=== PATIENT | male | born 1950 | race Caucasian/White ===

== ENCOUNTER 2022-09-22 05:58 | Inpatient (IN) | payer OTHER, MEDICARE ==
[~2022-09-22] VITALS: Ht 175.3 cm; Wt 117.1 kg
[~2022-09-22 05:58] MED LIST: ASPI81CH43; ATEN50TA; BUPR150T4; CYCL-181; FENT100D2; ISOS60TA24; LISI-710; METF850T; METO10TA3; NICO14DI; NITR0.4S31; PREG50CA; SIMV80TA2; TRIA25CA; VENL37.571; [UNRECOGNIZED DRUG - CODE]
[2022-09-22] MEDS ORDERED: LIDOCAINE HCL 100 MG/5ML (2%) SYRG INJ IV ONE ×2 (06:04→06:15)
[2022-09-22] MEDS ORDERED: LORazepam 2MG/ML-1ML VIAL ONE (06:06)
[2022-09-22] MEDS ORDERED: ONDANSETRON HCL 4 MG/2 ML VIAL ONE (06:08)
[2022-09-22] MEDS ORDERED: MAGNESIUM SULFATE 1GM/100ML 100 ML IV ONE ×2 (06:08→06:15)
[2022-09-22] MEDS ORDERED: SODIUM CHLORIDE 0.9% 1,000 ML IV ONE ×2 (06:15→07:00)
[2022-09-22] MEDS ORDERED: LORazepam 2MG/ML-1ML VIAL IV ONE (06:15)
[2022-09-22] MEDS ORDERED: ASPirin 325 MG TAB PO ONE (06:15)
[2022-09-22] MEDS ORDERED: ONDANSETRON HCL 4 MG/2 ML VIAL IV ONE (06:15)
[2022-09-22 06:38] LABS: Basophils # (auto) 0.1 10 ^3/uL (0-0.2); Eosinophils # (auto) 0.1 10 ^3/uL (0-0.8); Mean Corpuscular Hgb Conc. 34.2 g/dL (32.0-36.0); Monocytes # (auto) 0.6 10 ^3/uL (0-1.3); Monocytes % (auto) 6.1 % (0.0-12.0); Red Blood Cells 5.52 10^6/uL (4.5-5.90)
[2022-09-22 06:41] LABS: Basophils % (auto) 0.8 % (0.0-2.0); Eosinophils % (auto) 0.8 % (0.0-7.0); Hematocrit 51.6 % (41.0-53.0); Hemoglobin 17.7 g/dL (13.5-17.5); Lymphocytes % (auto) 32.2 % (10.0-50.0); Mean Corpuscular Volume 93.6 fL (80.0-100.0); Neutrophils # (auto) 5.5 10 ^3/uL (1.6-8.6); Neutrophils % (auto) 60.1 % (37.0-80.0); Nucleated Red Blood Cells % 0.1 %; Red Cell Distribution Width 13.2 % (11.8-14.3); White Blood Cell 9.2 10^3/uL (4.4-10.8)
[2022-09-22 06:57] LABS: Albumin 3.6 g/dL (3.4-5.0); BUN/Creatinine Ratio 20.5; Calcium 8.5 mg/dL (8.5-10.1); Potassium 4.4 mmol/L (3.5-5.1)
[2022-09-22 07:00] LABS: Bilirubin, Total 0.7 mg/dL (0.2-1.0); Total Protein 7.4 g/dL (6.4-8.2)
[2022-09-22] MEDS ORDERED: ASPirin 81 mg TAB PO ONE (07:00)
[2022-09-22] MEDS ORDERED: IOHEXOL 350 MG/ML 100ML IJ ONE (07:41)
[2022-09-22] MEDS ORDERED: HEPARIN DRIP/D5W 100UNITS/ML 250 ML IV SCH ×2 (09:15→09:45)
[2022-09-22] MEDS ORDERED: HEPARIN SODIUM (PORCINE) 5000 UNITS/ML 1ML VIAL IV ONE (09:15)
[2022-09-22 09:51] LABS: Basophils # (auto) 0 10 ^3/uL (0-0.2); Basophils % (auto) 0.4 % (0.0-2.0); Eosinophils # (auto) 0.1 10 ^3/uL (0-0.8); Eosinophils % (auto) 0.8 % (0.0-7.0); Hematocrit 51.5 % (41.0-53.0); Hemoglobin 17.4 g/dL (13.5-17.5); Lymphocytes % (auto) 28.7 % (10.0-50.0); Mean Corpuscular Hemoglobin 31.7 pg (28.0-32.0); Mean Corpuscular Hgb Conc. 33.8 g/dL (32.0-36.0); Mean Corpuscular Volume 93.8 fL (80.0-100.0); Monocytes # (auto) 0.6 10 ^3/uL (0-1.3); Monocytes % (auto) 6.1 % (0.0-12.0); Neutrophils # (auto) 6.7 10 ^3/uL (1.6-8.6); Nucleated Red Blood Cells % 0.1 %; Red Blood Cells 5.49 10^6/uL (4.5-5.90); Red Cell Distribution Width 13.1 % (11.8-14.3); White Blood Cell 10.5 10^3/uL (4.4-10.8)
[2022-09-22 10:29] LABS: INR 1.02 (0.9-1.15)
[2022-09-22] MEDS ORDERED: MORPHINE SULFATE INJ 2 MG/ml SYRG IV PRN (12:00)
[2022-09-22] MEDS ORDERED: PANTOPRAZOLE 40 MG/10 ML VIAL INJ IV ONE (12:00)
[2022-09-22] MEDS ORDERED: NITROGLYCERIN 0.4 MG SL TAB SL PRN (12:00)
[2022-09-22] MEDS ORDERED: ACETAMINOPHEN 325 MG TAB PO PRN (12:00)
[2022-09-22] MEDS ORDERED: DEXTROSE (50%) 50ML SYRG IV PRN (12:30)
[2022-09-22] MEDS ORDERED: ACETYLCYSTEINE ORAL for CIN 20%(200MG/ML) 4ML PO ONE (12:45)
[2022-09-22] MEDS: SODIUM CHLORIDE 0.9% 1,000 ML IV SCH (12:50)
[2022-09-22 12:58] LABS: Cholesterol 194 mg/dL (< 200)
[2022-09-22 13:01] LABS: HDL Cholesterol 34 mg/dL (40-59); LDL Cholesterol 147 mg/dL (< 100); Triglycerides 197 mg/dL (< 150)
[2022-09-22] MEDS ORDERED: NICOTINE 14 MG/24HR TOPICAL PATCH TD ONE (13:15)
[2022-09-22] MEDS ORDERED: IOHEXOL 300 MG/ML 100ML BOTTLE IJ ONE (14:23)
[2022-09-22 16:49] LABS: INR 1.08 (0.9-1.15)
[2022-09-22 16:53] LABS: Partial Thromboplastin Time 83.4 sec (24.6-33.4)
[2022-09-22] MEDS: InsuLIN REG 1unit/0.01ml Soln (100units/ml) SC SCH ×2 (17:00→21:05)
[2022-09-22] MEDS: ACCU-CHEK COMFORT CURVE STRIP VI SCH ×2 (17:12→21:05)
[2022-09-22] MEDS: HEPARIN DRIP/D5W 100UNITS/ML 250 ML IV SCH (17:45)
[2022-09-22] MEDS ORDERED: AMIODARONE HCL 150 MG in D5W 5% 100 ML IV ONE (18:00)
[2022-09-22] MEDS ORDERED: ETOMIDATE (2MG/ML) 20ML VIAL IV ONE ×2 (18:00→18:15)
[2022-09-22] MEDS ORDERED: ADENOSINE 6 MG/2 ML INJ IV ONE (18:15)
[2022-09-22] MEDS ORDERED: AMIODARONE 450mg/250ml AE 250 ML IV SCH (18:30)
[2022-09-22] MEDS: ASCORBIC ACID 500 MG TAB PO SCH (21:22)
[2022-09-22 21:26] VITALS: BP 153/80
[2022-09-22] MEDS ORDERED: TRAZ50TA2 PO (21:52)
[2022-09-22 22:00] VITALS: BP 153/80
[2022-09-22 23:43] LABS: INR 1.07 (0.9-1.15)
[2022-09-22 23:58] LABS: Partial Thromboplastin Time 90.8 sec (24.6-33.4)
[2022-09-23] MEDS: SODIUM CHLORIDE 0.9% 1,000 ML IV SCH (04:19)
[2022-09-23 05:00] VITALS: BP 136/78
[2022-09-23] MEDS: ACCU-CHEK COMFORT CURVE STRIP VI SCH ×4 (05:57→22:55)
[2022-09-23] MEDS: InsuLIN REG 1unit/0.01ml Soln (100units/ml) SC SCH ×4 (05:58→23:30)
[2022-09-23] MEDS: AMIODARONE 450mg/250ml AE 250 ML IV SCH ×2 (07:30→22:30)
[2022-09-23 07:38] LABS: Albumin 3.2 g/dL (3.4-5.0); Calcium 8.2 mg/dL (8.5-10.1); Potassium 4.1 mmol/L (3.5-5.1)
[2022-09-23 07:40] LABS: BUN/Creatinine Ratio 19.1
[2022-09-23 07:46] LABS: INR 1.05 (0.9-1.15); Partial Thromboplastin Time 61.9 sec (24.6-33.4)
[2022-09-23 08:00] VITALS: BP 149/81
[2022-09-23 08:01] LABS: Bilirubin, Total 0.7 mg/dL (0.2-1.0); Total Protein 6.9 g/dL (6.4-8.2)
[2022-09-23 08:16] LABS: Basophils # (auto) 0.1 10 ^3/uL (0-0.2); Basophils % (auto) 0.8 % (0.0-2.0); Eosinophils # (auto) 0.1 10 ^3/uL (0-0.8); Eosinophils % (auto) 1.7 % (0.0-7.0); Hematocrit 48.3 % (41.0-53.0); Hemoglobin 16.5 g/dL (13.5-17.5); Lymphocytes # (auto) 3.6 10 ^3/uL (0.4-5.4); Lymphocytes % (auto) 41.4 % (10.0-50.0); Mean Corpuscular Hgb Conc. 34.1 g/dL (32.0-36.0); Mean Corpuscular Volume 93.9 fL (80.0-100.0); Monocytes # (auto) 0.5 10 ^3/uL (0-1.3); Monocytes % (auto) 5.6 % (0.0-12.0); Neutrophils # (auto) 4.4 10 ^3/uL (1.6-8.6); Neutrophils % (auto) 50.5 % (37.0-80.0); Nucleated Red Blood Cells % 0.3 %; Red Blood Cells 5.15 10^6/uL (4.5-5.90); Red Cell Distribution Width 13.1 % (11.8-14.3); White Blood Cell 8.6 10^3/uL (4.4-10.8)
[2022-09-23 09:00] VITALS: BP 149/81
[2022-09-23] MEDS: HEPARIN DRIP/D5W 100UNITS/ML 250 ML IV SCH ×2 (09:08→16:08)
[2022-09-23] MEDS: NICOTINE 14 MG/24HR TOPICAL PATCH TD SCH (10:00)
[2022-09-23] MEDS: PANTOPRAZOLE 40 MG/10 ML VIAL INJ IV SCH (10:21)
[2022-09-23] MEDS: ZINC SULFATE 220mg CAP or TAB PO SCH (10:22)
[2022-09-23] MEDS: ISOSORBIDE MONONITRATE ER 60 MG TAB PO SCH (10:22)
[2022-09-23] MEDS: ASCORBIC ACID 500 MG TAB PO SCH ×2 (10:23→22:55)
[2022-09-23] MEDS: ASPirin 81 mg TAB PO SCH (10:23)
[2022-09-23] MEDS: ATENOLOL 50 MG TAB PO SCH (10:24)
[2022-09-23] MEDS: MULTIPLE VITAMIN TAB PO SCH (10:26)
[2022-09-23] MEDS: LISINOPRIL 10 MG TAB PO SCH (10:27)
[2022-09-23 13:00] VITALS: BP 105/60
[2022-09-23 13:41] LABS: INR 1.05 (0.9-1.15)
[2022-09-23 17:00] VITALS: BP 114/62
[2022-09-23 19:28] LABS: INR 1.03 (0.9-1.15); Partial Thromboplastin Time 58.5 sec (24.6-33.4)
[2022-09-23 22:00] VITALS: BP 100/52
[2022-09-24] MEDS: SODIUM CHLORIDE 0.9% 1,000 ML IV SCH ×2 (00:34→13:54)
[2022-09-24 05:00] VITALS: BP 115/60
[2022-09-24] MEDS: ACCU-CHEK COMFORT CURVE STRIP VI SCH ×4 (06:06→21:30)
[2022-09-24] MEDS: InsuLIN REG 1unit/0.01ml Soln (100units/ml) SC SCH ×4 (06:06→21:30)
[2022-09-24 08:00] VITALS: BP 117/72
[2022-09-24 09:00] VITALS: BP 111/72
[2022-09-24] MEDS: MULTIPLE VITAMIN TAB PO SCH (09:34)
[2022-09-24] MEDS: ASCORBIC ACID 500 MG TAB PO SCH ×2 (09:34→21:30)
[2022-09-24] MEDS: ATENOLOL 50 MG TAB PO SCH (09:36)
[2022-09-24] MEDS: PANTOPRAZOLE 40 MG/10 ML VIAL INJ IV SCH (09:37)
[2022-09-24] MEDS: AMIODARONE HCL 200 MG TAB PO SCH (09:37)
[2022-09-24] MEDS: ASPirin 81 mg TAB PO SCH (09:37)
[2022-09-24] MEDS: LISINOPRIL 10 MG TAB PO SCH (09:38)
[2022-09-24] MEDS: ISOSORBIDE MONONITRATE ER 60 MG TAB PO SCH (09:39)
[2022-09-24] MEDS: NICOTINE 14 MG/24HR TOPICAL PATCH TD SCH (10:00)
[2022-09-24 10:29] LABS: Basophils # (auto) 0.1 10 ^3/uL (0-0.2); Basophils % (auto) 0.7 % (0.0-2.0); Eosinophils # (auto) 0.2 10 ^3/uL (0-0.8); Eosinophils % (auto) 1.9 % (0.0-7.0); Hematocrit 46.4 % (41.0-53.0); Hemoglobin 15.4 g/dL (13.5-17.5); Lymphocytes # (auto) 3.2 10 ^3/uL (0.4-5.4); Lymphocytes % (auto) 37.1 % (10.0-50.0); Mean Corpuscular Hemoglobin 31.6 pg (28.0-32.0); Mean Corpuscular Hgb Conc. 33.1 g/dL (32.0-36.0); Mean Corpuscular Volume 95.4 fL (80.0-100.0); Monocytes # (auto) 0.6 10 ^3/uL (0-1.3); Monocytes % (auto) 6.3 % (0.0-12.0); Neutrophils # (auto) 4.7 10 ^3/uL (1.6-8.6); Nucleated Red Blood Cells % 0.2 %; Red Blood Cells 4.86 10^6/uL (4.5-5.90); Red Cell Distribution Width 13.2 % (11.8-14.3); White Blood Cell 8.7 10^3/uL (4.4-10.8)
[2022-09-24] MEDS: ZINC SULFATE 220mg CAP or TAB PO SCH (10:44)
[2022-09-24] MEDS ORDERED: APIXABAN 5 MG TAB PO ONE (11:00)
[2022-09-24 11:17] LABS: INR 1.06 (0.9-1.15); Partial Thromboplastin Time 58.9 sec (24.6-33.4)
[2022-09-24] MEDS ORDERED: ADENOSINE 6 MG/2 ML INJ IV ONE (12:18)
[2022-09-24] MEDS ORDERED: AMIODARONE HCL (50 MG/ ML) 3 ML VIAL IV ONE (12:18)
[2022-09-24 13:00] VITALS: BP 134/84
[2022-09-24 17:00] VITALS: BP 133/73
[2022-09-24] MEDS: APIXABAN 5 MG TAB PO SCH (21:31)
[2022-09-24 22:00] VITALS: BP 127/73
[2022-09-25 05:20] VITALS: BP 125/67
[2022-09-25] MEDS: InsuLIN REG 1unit/0.01ml Soln (100units/ml) SC SCH ×2 (06:27→11:30)
[2022-09-25] MEDS: ACCU-CHEK COMFORT CURVE STRIP VI SCH ×2 (06:27→11:30)
[2022-09-25 08:00] VITALS: BP 134/84
[2022-09-25 09:00] VITALS: BP 137/75
[2022-09-25] MEDS: PANTOPRAZOLE 40 MG/10 ML VIAL INJ IV SCH (09:15)
[2022-09-25] MEDS: ASPirin 81 mg TAB PO SCH (09:16)
[2022-09-25] MEDS: AMIODARONE HCL 200 MG TAB PO SCH (09:16)
[2022-09-25] MEDS: APIXABAN 5 MG TAB PO SCH (09:17)
[2022-09-25] MEDS: ASCORBIC ACID 500 MG TAB PO SCH (09:17)
[2022-09-25] MEDS: ZINC SULFATE 220mg CAP or TAB PO SCH (09:17)
[2022-09-25] MEDS: ATENOLOL 50 MG TAB PO SCH (09:18)
[2022-09-25] MEDS: MULTIPLE VITAMIN TAB PO SCH (09:19)
[2022-09-25] MEDS: LISINOPRIL 10 MG TAB PO SCH (09:19)
[2022-09-25] MEDS: NICOTINE 14 MG/24HR TOPICAL PATCH TD SCH (09:24)
[2022-09-25] MEDS ORDERED: APIX5TAB PO (09:52)
[2022-09-25] MEDS ORDERED: ISOSORBIDE MONONITRATE ER 60 MG TAB PO ONE (10:00)
== END 2022-09-25 12:42 | disposition home or self-care (01) | DRG 175 ==
LOC: EDBD 05:58 → ER 05:58 → EDSEX 05:58 → TELE 11:50 → TELE-CENTR 20:52 → CENTRAL 09-25 10:06
PROVIDERS: ADMIT Nurse Practitioner Family; ATTEND Internal Medicine Geriatric Medicine
DX: I26.99 Other pulmonary embolism without acute cor pulmonale (principal); J96.01 Acute respiratory failure with hypoxia; I47.1 Supraventricular tachycardia; Z20.822 Contact with and (suspected) exposure to COVID-19; E03.9 Hypothyroidism, unspecified; K57.90 Diverticulosis of intestine, part unspecified, without perforation or abscess without bleeding; I10 Essential (primary) hypertension; E11.65 Type 2 diabetes mellitus with hyperglycemia; F17.210 Nicotine dependence, cigarettes, uncomplicated; I25.10 Atherosclerotic heart disease of native coronary artery without angina pectoris; G47.33 Obstructive sleep apnea (adult) (pediatric); J44.9 Chronic obstructive pulmonary disease, unspecified; E78.5 Hyperlipidemia, unspecified; E66.01 Morbid (severe) obesity due to excess calories; Z98.61 Coronary angioplasty status; Z68.38 Body mass index [BMI] 38.0-38.9, adult; Z71.3 Dietary counseling and surveillance
CPT/HCPCS: 36415; 71045; 71275; 74176; 80053; 80061; 82962; 83036; 83690; 83735; 84443; 84484; 85025; 85379; 85610; 85730; 87340; 87426; 93005; 93306; 93970; 96361; 96365; 96367; 96375; C9113; G0378; J0153; J1815; J2405; J7060